=== PATIENT | male | born 1955 | race Caucasian/White ===

== ENCOUNTER 2017-08-07 19:10 | Emergency (ER) | payer SELFPAY ==
[2017-08-07 20:34] VITALS: BP 140/78
[2017-08-07] MEDS ORDERED: NORCO 7.5/325 ONE (20:43)
[2017-08-07] MEDS ORDERED: NORCO 7.5/325 PO ONE (20:45)
--- NOTE | 2017-08-07 20:47 | Emergency Department Report ---
ED Rash HPI - HPI Chief Complaint: Skin Rash Stated Complaint: PAIN IN RIGHT ARM Time Seen by Provider: 08/07/17 20:45 Duration: 4 Days Location: Chest (the right side of her anterior and posterior trunk), Upper Extremities (right upper extremity from shoulder to wrist) Suspected Cause: Unknown Rash Symptoms: Yes Blistering, Yes Myalgias, No Itching, No Facial Swelling, No Tongue/Oral Swelling, No Breathing Difficulties, No Choking Sensation, No Wheezing/Dyspnea, No Peeling, No Fever, No Lightheaded, No Malaise Severity: moderate Other History: Physical 62-year-old male that presents with blistering painful rash on right upper arm, right chest, right upper back for 4 days. She reports feeling pain and right upper extremity and right trunk for 2 weeks. He did not notice any symptoms of a rash until 4 days ago. He has not taken anything for symptoms were applied anything to area. Reports rash is painful and erythematous. Denies itching, spreading, swelling, and fever. ED Review of Systems ROS: Stated complaint: PAIN IN RIGHT ARM Other details as noted in HPI Constitutional: denies: chills, fever Respiratory: denies: cough, shortness of breath, wheezing Cardiovascular: denies: chest pain, palpitations Gastrointestinal: denies: abdominal pain, nausea, vomiting, diarrhea Musculoskeletal: denies: back pain, joint swelling, arthralgia, myalgia Skin: rash (painful rash to right anterior and posterior trunk, right upper extremity from shoulder to wrist). denies: lesions Neurological: denies: headache, weakness, paresthesias Psychiatric: denies: anxiety, depression ED Past Medical Hx - Past Medical History Previous Medical History?: No - Surgical History Past Surgical History?: No - Social History Smoking Status: Never Smoker Substance Use Type: None - Medications Home Medications: Home Medications Medication Instructions Recorded Confirmed Last Taken Type Ibuprofen [Motrin 800 MG tab] 800 mg PO Q8HR PRN #20 tablet 08/07/17 Unknown Rx Valacyclovir HCl [Valtrex] 1,000 mg PO TID #20 tablet 08/07/17 Unknown Rx traMADol [Ultram 50 MG tab] 50 mg PO Q6HR PRN #15 tablet 08/07/17 Unknown Rx Rash Exam - Exam General: Vital signs noted. No distress. Alert and acting appropriately. HEENT: No Periorbital Edema, No Conjuctival Injection, No Chemosis, No Perioral Edema, No Tongue Edema, No Uvular Edema, No Compromised Airway, No Drooling Lungs: Yes Good Air Exchange (Normal Breath Sounds), No Wheezes, No Ronchi, No Stridor, No Cough, No Labored Respirations, No Retractions, No Use of Accessory Muscles, No Other Abnormal Lung Sounds Heart: Yes Regular, No Murmur Skin: Yes Maculopapular Rash (erythematous maculopapular rash following 2 dermatomes on anterior and posterior right side of upper trunk, from right shoulder to right wrist), Yes Tenderness, Yes Erythema, Yes Encrustations, No Urticarial Rash, No Morbilliform rash, No Bulla(e), No Excoriations, No Weeping , No Edema ED Course Vital Signs 08/07/17 20:28 Temperature 98 F Pulse Rate 95 H Respiratory 16 Rate Blood Pressure 140/78 O2 Sat by Pulse 99 Oximetry ED Medical Decision Making - Medical Decision Making This is a 62-year-old male that presents with maculopapular painful rash to anterior and posterior right upper trunk, and from right shoulder to wrist for 4 days. Patient is stable and was examined by me. Vitals normal. Physical assessment susceptible of herpes zoster. Patient given Bradley 7.5/325 mg by mouth once, valacyclovir 1000 mg by mouth once in the ER and trauma call 50 mg by mouth every 6 hours when necessary #15. Start famciclovir 1000 by mouth 3 times a day 7 days and ibuprofen 800 mg by mouth every 6 hours when necessary #20. Discussed plan with patient and he agreed with plan. Discharged home in stable condition. Follow up with PCP in 24-72 hours. Critical care attestation.: If time is entered above; I have spent that time in minutes in the direct care of this critically ill patient, excluding procedure time. ED Disposition Clinical Impression: Herpes zoster Qualifiers: Herpes zoster complications: without complications Qualified Code(s): B02.9 - Zoster without complications Disposition: - TO HOME OR SELFCARE Is pt being admited?: No Does the pt Need Aspirin: No Condition: Stable Instructions: Herpes Zoster (ED) Additional Instructions: Lesion should start to crust over in 7-10 days. 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 Take ibuprofen every 6 hours as needed for pain. Follow-up with your primary care provider in 2-3 days. Prescriptions: Ibuprofen [Motrin 800 MG tab] 800 mg PO Q8HR PRN #20 tablet PRN Reason: Pain traMADol [Ultram 50 MG tab] 50 mg PO Q6HR PRN #15 tablet PRN Reason: Pain Valacyclovir HCl [Valtrex] 1,000 mg PO TID #20 tablet Referrals: PRIMARY CARE, [Primary Care Provider] - 3-5 Days [facility] [place] [Outside] - 3-5 Days [facility] [Outside] - 3-5 Days [facility] [Outside] - 3-5 Days Time of Disposition: 22:37 Print Language: TONGAN
[2017-08-07] MEDS ORDERED: VALTREX PO ONE (21:00)
== END 2017-08-07 22:50 | disposition home or self-care (01) ==
LOC: ED 19:10
DX: B02.9 Zoster without complications (principal)
CPT/HCPCS: 99282